=== PATIENT | male | born 1965 | race Caucasian/White ===

== ENCOUNTER 2016-12-22 11:23 | Day surgery (SDC) | payer OTHER ==
[~2016-12-22] VITALS: Ht 177.8 cm; Wt 72.1 kg
[~2016-12-22 11:23] MED LIST: BUPIVACAINE-EPI 0.5%-1:200000 50 ML VIAL. ONE; HYDROmorphone 2 MG/ML VIAL IV PRN; LIDOCAINE 1% PF 2 ML VIAL. ID PRN; MORPHINE SULFATE 2 MG/ML DISP.SYRIN. IV PRN; ONDANSETRON PF 4 MG/2 ML VIAL. IV PRN; PROCHLORPERAZINE 10 MG/2 ML VIAL. IV PRN; fentaNYL PF VIAL 100 MCG/2 ML VIAL IV PRN
[2016-12-22] MEDS ORDERED: BUPIVACAINE-EPI 0.5%-1:200000 50 ML VIAL. ONE (11:49)
[2016-12-22] MEDS ORDERED: HYDR-2868 PO (12:17)
[2016-12-22] MEDS ORDERED: IBUP-1060 PO (12:17)
[2016-12-22] MEDS ORDERED: CYCL10TA2 PO (12:17)
[2016-12-22] MEDS: IV RINGERS,LACTATED 1000ML 1,000 ML IV SCH ×2 (12:26→14:40)
[2016-12-22 12:29] LABS: BASO # 0.1 x10^3/uL (0.0-0.2); BASO % 1 % (0-3); EOS % 2 % (0-3); HEMATOCRIT 43.4 % (39.0-53.0); HEMOGLOBIN 14.4 g/dL (13.0-17.5); LYMPH # 3.5 x10^3/uL (1.0-4.8); LYMPH % 33 % (24-48); MEAN CORPUSCULAR HEMOGLOBIN 32 pg (25-35); MEAN CORPUSCULAR HGB CONC 33 g/dL (31-37); MEAN CORPUSCULAR VOLUME 97 fL (79-100); MONO % 6 % (0-9); NEUT % 58 % (31-73); PLATELET COUNT 258 x10^3/uL (140-400); RED BLOOD COUNT 4.46 x10^6/uL (4.30-5.70); RED CELL DISTRIBUTION WIDTH 13.4 % (11.5-14.5); WHITE BLOOD COUNT 10.4 x10^3/uL (4.0-11.0)
[2016-12-22 12:34] LABS: ALBUMIN 4.2 g/dL (3.4-5.0); CALCIUM 8.9 mg/dL (8.5-10.1); CREATININE 0.9 mg/dL (0.7-1.3); GFR 89.3; POTASSIUM 3.7 mmol/L (3.5-5.1)
[2016-12-22] MEDS ORDERED: MIDAZOLAM HCL/PF 2 MG/2 ML VIAL. ONE (12:46)
[2016-12-22] MEDS ORDERED: ONDANSETRON PF 4 MG/2 ML VIAL. ONE (12:46)
[2016-12-22] MEDS ORDERED: DEXAMETHASONE SOD PHOS 20 MG/5 ML VIAL. ONE (12:46)
[2016-12-22] MEDS ORDERED: PROPOFOL 20 ML IV ONE (12:46)
[2016-12-22] MEDS ORDERED: LIDOCAINE 2% PF Vial for OR 5 ML VIAL. ONE (12:46)
[2016-12-22] MEDS ORDERED: fentaNYL PF VIAL 100 MCG/2 ML VIAL ONE (12:46)
[2016-12-22] MEDS ORDERED: SEVOFLURANE > 120 MINUTES. IH ONE (14:10)
[2016-12-22] MEDS ORDERED: SEVOFLURANE 61 TO 120 MINUTES. IH ONE (14:10)
[2016-12-22] MEDS: fentaNYL PF VIAL 100 MCG/2 ML VIAL IV PRN ×2 (14:37→15:17)
--- NOTE | 2016-12-22 14:41 | PDOC ---
BRIEF OPERATIVE NOTE Date: Dec 22, 2016 Pre-Op Diagnosis incarcerated right inguinal hernia Post-Op Diagnosis same, direct Procedure Performed repair with mesh Surgeon Ubaldo Anesthesia Type: General Blood Loss 10cc IV Fluid 1000cc Specimens Obtained none Findings large, incarcerated direct hernia, no indirect hernia sack Complications none OPerative Note # [id number] RENETTA ABAD MD Dec 22, 2016 14:41
--- NOTE | 2016-12-22 14:42 | DISCH ---
DISCHARGE INSTRUCTIONS Condition on Discharge Condition on Discharge: Stable Activity After Discharge Activity Instructions for Disc: Activity as tolerated, Avoid exertion Lifting Instructions after Dis: No heavy lifting Driving Instructions after Dis: Do not drive Diet after Discharge Diet after Discharge: Regular Wound Incision Care Wound/Incision Care: Ice to area for comfort Other wound/incision instructi: july shower Tuesday Follow-Up Follow up with: Ubaldo next week RENETTA ABAD MD Dec 22, 2016 14:42
[2016-12-22] MEDS ORDERED: OXYC-323 PO (15:00)
[2016-12-22] MEDS ORDERED: oxyCODONE/APAP 5/325 1 TAB TABLET PO ONE (15:00)
[2016-12-22] MEDS ORDERED: DOCU50CA9 PO (15:01)
[2016-12-22 16:14] VITALS: BP 142/92
--- NOTE | 2016-12-22 18:51 | OP ---
DATE OF SURGERY: 12/22/2016 PREOPERATIVE DIAGNOSIS: Incarcerated right inguinal hernia. POSTOPERATIVE DIAGNOSIS: Incarcerated right inguinal hernia, direct. PROCEDURE: Repair with mesh. SURGEON: Renetta Abad MD. ANESTHESIA: General LMA. ESTIMATED BLOOD LOSS: 10 mL. INTRAVENOUS FLUIDS: 1 liter. INDICATIONS: The patient is a 51-year-old with right inguinal fullness and pain, brought for repair. OPERATIVE FINDINGS: The direct hernia that extended into the hemiscrotum contained omentum and was reducible after slightly enlarging the hernia defect in the floor of the canal. DESCRIPTION OF PROCEDURE: The patient brought to the operating suite, given a general LMA and the right groin was prepped and draped in usual sterile fashion. 0.5% Marcaine with epinephrine was used to infiltrate the skin and subcutaneous tissue along the incision line. Incision made, dissection carried down to the external oblique fascia. Bleeders were cauterized or tied as identified. The fascia was opened in the direction of its fibers, extending through the external ring, taking care to avoid injury to the adjacent vessels. The cord was stripped off the pubis. Slater drain placed around it and dissection carried back to the internal ring where no indirect hernia sac was seen. The direct hernia was mobilized up out of the hemiscrotum. This hernia defect in the floor of the canal was extended slightly medially and was gently dilated. This allowed reduction of the hernia contents. The hernia sac was scored at the neck and held in reduction with a large plug of mesh, tacked with 2-0 PDS, taking care to avoid injury to adjacent vessels. The precut "keyhole" patch was then placed over the repair. The slit closed with a single 2-0 PDS stitch and the area checked for adequate hemostasis. When present and a correct sponge count had been obtained, the cord was returned to its normal anatomical position. The external oblique fascia closed over in a running fashion with 3-0 Vicryl. Subq approximated with 3-0 Vicryl, skin closed with subcuticular 4-0 Monocryl. Steri-Strips and sterile dressing applied. Prior to emergence from anesthesia, digital rectal exam failed to reveal evidence of prostatic enlargement or nodularity. The patient was awakened from his anesthetic and taken to the recovery room in satisfactory condition. RENETTA ABAD MD DR: Divina JOB#: [id number] / [id number]
== END 2016-12-22 17:40 | disposition home or self-care (01) ==
LOC: SURG 11:23
PROVIDERS: ATTEND Surgery
DX: K40.30 Unilateral inguinal hernia, with obstruction, without gangrene, not specified as recurrent (principal); E16.2 Hypoglycemia, unspecified; F41.9 Anxiety disorder, unspecified; G47.30 Sleep apnea, unspecified; Z72.0 Tobacco use; Z86.69 Personal history of other diseases of the nervous system and sense organs; Z87.39 Personal history of other diseases of the musculoskeletal system and connective tissue; Z86.39 Personal history of other endocrine, nutritional and metabolic disease; Z72.89 Other problems related to lifestyle; Z88.6 Allergy status to analgesic agent; Z88.0 Allergy status to penicillin
CPT/HCPCS: 36415; 49507; 80048; 82040; 85025; C1769; C1781; J0780; J1100; J1956; J2250; J2405; J2704; J3010; J7120; J2001